=== PATIENT | male | born 1985 | race Two or more races ===

== ENCOUNTER 2017-01-08 02:57 | Emergency (ER) | payer OTHER ==
[~2017-01-08] VITALS: Ht 167.6 cm; Wt 76.2 kg
[~2017-01-08 02:57] MED LIST: BENA20TA2 PO
[2017-01-08] MEDS ORDERED: BUPROPN HCL (03:14)
[2017-01-08] MEDS ORDERED: APAP (03:14)
[2017-01-08] MEDS ORDERED: HYDROCO (03:14)
[2017-01-08] MEDS ORDERED: ALPRAZOLAM 2 MG (03:14)
[2017-01-08] MEDS ORDERED: TRUVADA (03:14)
[2017-01-08] MEDS ORDERED: TEGRETOL (03:18)
[2017-01-08] MEDS ORDERED: ATENOLOL (03:18)
[2017-01-08] MEDS ORDERED: CLONIDINE (03:19)
--- NOTE | 2017-01-08 03:42 | NUR ---
Pt ambulated to room with steady gait. Pt c/o general body pain, nausea and fever. Pt sts "my lupus is flaring up." Pt seen by Dr. David. IV established, labs drawn and sent. Pt medicated for discomfort and nausea, will monitor for effects of medications. Fluid bolus infusing freely to gravity. Pt resting in position of comfort for self. Family at bedside.
[2017-01-08 04:12] LABS: BILIRUBIN,DIRECT 0.1 mg/dL (0.0-0.2); BILIRUBIN,TOTAL 0.7 mg/dL (0.2-1.0); POTASSIUM 3.6 mmol/L (3.5-5.1); TOTAL PROTEIN, SERUM 7.5 g/dL (6.4-8.2)
--- NOTE | 2017-01-08 04:14 | NUR ---
Fluid bolus completed. Pt sts his pain improved with medications. Pt conts to c/o severe nausea. notified and pt medicated, will monitor for effects of medication. Pt repositioned for comfort, family at bedside.
[2017-01-08 04:20] LABS: EOSINOPHILS % (AUTO) 0.9 % (0.0-7.0); HEMATOCRIT 47.3 % (40-50); HEMOGLOBIN 16.2 G/DL (14.0-18.0); LYMPHOCYTES % (AUTO) 13.7 % (20.5-51.5); MEAN CORPUSCULAR HEMOGLOBIN 32.2 UUG (27.0-31.0); MEAN CORPUSCULAR HGB CONC 34 g/dL (32.0-37.0); MONOCYTES % (AUTO) 8.2 % (0.0-11.0); NEUTROPHILS % (AUTO) 77.1 % (38.5-71.5); PLATELET COUNT (AUTO) 228 K/UL (150-450); RED BLOOD CELL COUNT(AUTO) 5.03 MIL/UL (4.7-6.1); WHITE BLOOD COUNT (AUTO) 8.8 K/UL (4.0-11.2)
[2017-01-08 04:21] LABS: BASOPHILS % (AUTO) 0.1 % (0.0-2.0); EOSINOPHILS # (AUTO) 0.1 K/uL (0.0-0.7); LYMPHOCYTES # (AUTO) 1.2 K/UL (0.8-4.8); MONOCYTES # (AUTO) 0.7 K/UL (0.1-1.30); NEUTROPHILS # (AUTO) 6.8 K/UL (1.8-8.9)
[2017-01-08 04:37] LABS: *BILIRUBIN,URIN NEGATIVE (NEGATIVE); *BLOOD, URINE NEGATIVE (NEGATIVE); *CLARITY,URINE CLEAR (CLEAR); *COLOR,URINE YELLOW (YELLOW); *KETONES,URINE NEGATIVE (NEGATIVE); *PROTEIN,URINE NEGATIVE (NEGATIVE); *UROBILINOGEN,URINE 0.2 E.U./dl (NORMAL); LEUKOCYTE ESTERASE ,URINE NEGATIVE (NEGATIVE); NITRITE, URINE NEGATIVE (NEGATIVE); PH,URINE 6.5 (5.0-8.0); UGLUCOSE NEGATIVE (NEGATIVE)
[2017-01-08 04:45] LABS: BACTERIA,URINE NONE SEEN /HPF (NONE SEEN); MUCUS,URINE FEW /LPF (0-FEW); RBC,URINE NONE SEEN /HPF (0-3); SQUAMOUS EPITHELIAL CELL,UR FEW /HPF (NONE SEEN); WBC,URINE 0-3 /HPF (0-3)
--- NOTE | 2017-01-08 04:50 | NUR ---
Pt sts his nausea has improved. No complaints at this time. Pt awaiting re-evaluation and disposition.
--- NOTE | 2017-01-08 05:40 | NUR ---
Pt sts he is feeling better. Pt stable for discharge per Dr. David. IV dc'd, catheter intact. Drsg applied. No problems noted to site. Pt and family given ACI. Both verbalized understanding of dc instructions. Pt ambulated out of er with steady gait and ride home
[2017-01-08 05:42] VITALS: BP 148/97
== END 2017-01-08 05:42 | disposition home or self-care (01) ==
LOC: ER 02:57
DX: R50.9 Fever, unspecified (principal); M32.9 Systemic lupus erythematosus, unspecified; R11.0 Nausea; M79.1 Myalgia; I10 Essential (primary) hypertension
CPT/HCPCS: 36415; 83690; 85025; 85651; 86140; 93005; A4663; J1170; J2405; J2765; J2930; J7030

== ENCOUNTER 2017-02-01 01:19 | Emergency (ER) | payer OTHER ==
[~2017-02-01] VITALS: Ht 170.2 cm; Wt 74.8 kg
[~2017-02-01 01:19] MED LIST changes: +ALPRAZOLAM 2 MG PO; +APAP PO; +ATENOLOL PO; +BUPROPN HCL PO; +CLONIDINE PO; +HYDROCO PO; +TEGRETOL; +TRUVADA PO
[2017-02-01] MEDS ORDERED: ONDANSETRON 4 MG/2 ML VIAL IV ONE ×2 (02:00→03:30)
[2017-02-01] MEDS ORDERED: MORPHINE SULFATE 2 MG/1 ML DISP.SYRIN IV ONE (02:00)
[2017-02-01] MEDS ORDERED: PANTOPRAZOLE SODIUM 40 MG VIAL IV ONE (02:00)
[2017-02-01] MEDS ORDERED: IV NORMAL SALINE 1000 ML BAG IV ONE (02:00)
[2017-02-01 02:15] LABS: BASOPHILS % (AUTO) 0.3 % (0.0-2.0); EOSINOPHILS % (AUTO) 0.4 % (0.0-7.0); HEMATOCRIT 47.3 % (40-50); HEMOGLOBIN 16.5 G/DL (14.0-18.0); LYMPHOCYTES # (AUTO) 1.1 K/UL (0.8-4.8); LYMPHOCYTES % (AUTO) 9.3 % (20.5-51.5); MEAN CORPUSCULAR HEMOGLOBIN 32.7 UUG (27.0-31.0); MEAN CORPUSCULAR HGB CONC 35 g/dL (32.0-37.0); MEAN CORPUSCULAR VOLUME 93.7 FL (82.0-92.0); MONOCYTES # (AUTO) 0.6 K/UL (0.1-1.30); MONOCYTES % (AUTO) 5.5 % (0.0-11.0); NEUTROPHILS # (AUTO) 9.9 K/UL (1.8-8.9); NEUTROPHILS % (AUTO) 84.5 % (38.5-71.5); PLATELET COUNT (AUTO) 241 K/UL (150-450); RED BLOOD CELL COUNT(AUTO) 5.05 MIL/UL (4.7-6.1); WHITE BLOOD COUNT (AUTO) 11.6 K/UL (4.0-11.2)
[2017-02-01 02:29] LABS: BILIRUBIN,DIRECT 0.1 mg/dL (0.0-0.2); BILIRUBIN,TOTAL 0.5 mg/dL (0.2-1.0); CREATININE 1.1 mg/dL (0.6-1.3); POTASSIUM 3.4 mmol/L (3.5-5.1); TOTAL PROTEIN, SERUM 7.8 g/dL (6.4-8.2)
[2017-02-01] MEDS ORDERED: MORPHINE SULFATE 2 MG/1 ML DISP.SYRIN ONE (02:51)
[2017-02-01] MEDS ORDERED: ONDANSETRON 4 MG/2 ML VIAL ONE ×2 (02:51→03:31)
[2017-02-01] MEDS ORDERED: PANTOPRAZOLE SODIUM 40 MG VIAL ONE (02:51)
[2017-02-01] MEDS ORDERED: HYDROMORPHONE 1 MG/1 ML DISP.SYRIN IV ONE (03:30)
[2017-02-01] MEDS ORDERED: HYDROMORPHONE 1 MG/1 ML DISP.SYRIN ONE (03:31)
[2017-02-01] MEDS ORDERED: diphenhydrAMINE 50 MG/1 ML VIAL ONE (03:37)
[2017-02-01] MEDS ORDERED: METOCLOPRAMIDE HCL 10 MG/2 ML VIAL ONE (03:37)
[2017-02-01] MEDS ORDERED: diphenhydrAMINE 50 MG/1 ML VIAL IV ONE (03:45)
[2017-02-01] MEDS ORDERED: METOCLOPRAMIDE HCL 10 MG/2 ML VIAL IV ONE (03:45)
[2017-02-01 04:08] LABS: *BILIRUBIN,URIN NEGATIVE (NEGATIVE); *BLOOD, URINE NEGATIVE (NEGATIVE); *CLARITY,URINE CLEAR (CLEAR); *COLOR,URINE YELLOW (YELLOW); *KETONES,URINE 1+ (NEGATIVE); *PROTEIN,URINE NEGATIVE (NEGATIVE); *UROBILINOGEN,URINE 0.2 E.U./dl (NORMAL); LEUKOCYTE ESTERASE ,URINE NEGATIVE (NEGATIVE); NITRITE, URINE NEGATIVE (NEGATIVE); UGLUCOSE NEGATIVE (NEGATIVE)
[2017-02-01 04:10] LABS: BACTERIA,URINE NONE SEEN /HPF (NONE SEEN); RBC,URINE 0-3 /HPF (0-3); SQUAMOUS EPITHELIAL CELL,UR FEW /HPF (NONE SEEN); WBC,URINE 0-3 /HPF (0-3)
--- NOTE | 2017-02-01 04:47 | NUR ---
Patient discharged to home in stable conditon. Written and verbal after care instructions given. Patient verbalizes understanding of instructions.
== END 2017-02-01 04:48 | disposition home or self-care (01) ==
LOC: ER 01:22
DX: K92.0 Hematemesis (principal); K29.70 Gastritis, unspecified, without bleeding; I10 Essential (primary) hypertension; Z88.0 Allergy status to penicillin; Z88.6 Allergy status to analgesic agent; Z90.49 Acquired absence of other specified parts of digestive tract
CPT/HCPCS: 36415; 80048; 80076; 81001; 83690; 85025; 85730; 86850; 86900; 86901; 96361; 96374; 96375; 99284; A4663; C9113; J1170; J1200; J2270; J2405; J2765; J7030

== ENCOUNTER 2017-03-03 12:33 | Emergency (ER) | payer OTHER ==
[~2017-03-03] VITALS: Ht 170.2 cm; Wt 77.1 kg
[2017-03-03] MEDS ORDERED: ONDA4TAB8 PO (12:52)
[2017-03-03] MEDS ORDERED: CLONIDINE TAB 0.1MG (12:52)
[2017-03-03] MEDS ORDERED: ONDANSETRON 4 MG/2 ML VIAL IV ONE (13:45)
[2017-03-03] MEDS ORDERED: IV NORMAL SALINE 1000 ML BAG IV ONE (13:45)
[2017-03-03 14:04] LABS: BASOPHILS % (AUTO) 0.4 % (0.0-2.0); EOSINOPHILS # (AUTO) 0.3 K/uL (0.0-0.7); EOSINOPHILS % (AUTO) 5.1 % (0.0-7.0); HEMATOCRIT 47.4 % (40-50); HEMOGLOBIN 16.3 G/DL (14.0-18.0); LYMPHOCYTES # (AUTO) 1.8 K/UL (0.8-4.8); LYMPHOCYTES % (AUTO) 29.5 % (20.5-51.5); MEAN CORPUSCULAR HEMOGLOBIN 31.8 UUG (27.0-31.0); MEAN CORPUSCULAR HGB CONC 34 g/dL (32.0-37.0); MEAN CORPUSCULAR VOLUME 92.7 FL (82.0-92.0); MONOCYTES # (AUTO) 0.4 K/UL (0.1-1.30); MONOCYTES % (AUTO) 6.6 % (0.0-11.0); NEUTROPHILS # (AUTO) 3.6 K/UL (1.8-8.9); NEUTROPHILS % (AUTO) 58.4 % (38.5-71.5); PLATELET COUNT (AUTO) 275 K/UL (150-450); RED BLOOD CELL COUNT(AUTO) 5.11 MIL/UL (4.7-6.1); WHITE BLOOD COUNT (AUTO) 6.1 K/UL (4.0-11.2)
[2017-03-03] MEDS ORDERED: ONDANSETRON 4 MG/2 ML VIAL ONE (14:05)
[2017-03-03 14:07] LABS: CREATININE 0.8 mg/dL (0.6-1.3); POTASSIUM 4.2 mmol/L (3.5-5.1)
[2017-03-03 14:12] LABS: BILIRUBIN,DIRECT 0.1 mg/dL (0.0-0.2); BILIRUBIN,TOTAL 0.4 mg/dL (0.2-1.0); TOTAL PROTEIN, SERUM 7.5 g/dL (6.4-8.2)
[2017-03-03] MEDS ORDERED: diphenhydrAMINE 50 MG/1 ML VIAL IV ONE (15:15)
[2017-03-03] MEDS ORDERED: METOCLOPRAMIDE HCL 10 MG/2 ML VIAL IV ONE (15:15)
--- NOTE | 2017-03-03 15:43 | NUR ---
Patient discharged to home in stable conditon. Written and verbal after care instructions given. Patient verbalizes understanding of instructions. Stressed follow up with pmd/GI, pt was given referrals by Dr. Akers.
[2017-03-03] MEDS ORDERED: METOCLOPRAMIDE HCL 10 MG/2 ML VIAL ONE (15:47)
[2017-03-03] MEDS ORDERED: diphenhydrAMINE 50 MG/1 ML VIAL ONE (15:47)
== END 2017-03-03 15:44 | disposition home or self-care (01) ==
LOC: ER 12:38
DX: R19.7 Diarrhea, unspecified (principal); R11.2 Nausea with vomiting, unspecified; R10.9 Unspecified abdominal pain; R51 Headache; F12.10 Cannabis abuse, uncomplicated; Z88.0 Allergy status to penicillin; Z90.49 Acquired absence of other specified parts of digestive tract; I10 Essential (primary) hypertension
CPT/HCPCS: 36415; 70450; 74176; 80048; 80076; 84484; 85025; 96361; 96374; 96375; 99285; A4663; J1200; J2405; J2765; J7030; 70030-TC

== ENCOUNTER 2017-05-26 19:02 | Emergency (ER) | payer OTHER ==
[~2017-05-26] VITALS: Ht 170.2 cm; Wt 74.8 kg
[~2017-05-26 19:02] MED LIST changes: +CLONIDINE TAB 0.1MG; +ONDA4TAB8 PO; -TEGRETOL
[2017-05-26] MEDS ORDERED: LABETALOL HCL 100 MG/20 ML VIAL ONE (19:36)
[2017-05-26] MEDS ORDERED: LORAZEPAM 2 MG/1 ML VIAL IV ONE (19:45)
[2017-05-26] MEDS ORDERED: ACETAMINOPHEN 325 MG TABLET PO ONE (19:45)
[2017-05-26] MEDS ORDERED: LABETALOL HCL 100 MG/20 ML VIAL IV ONE (19:45)
[2017-05-26] MEDS ORDERED: ACETAMINOPHEN ES 500 MG TABLET PO ONE (19:45)
[2017-05-26] MEDS ORDERED: ACETAMINOPHEN ES 500 MG TABLET ONE (19:52)
[2017-05-26] MEDS ORDERED: LORAZEPAM 2 MG/1 ML VIAL ONE (19:53)
[2017-05-26 20:02] LABS: BASOPHILS % (AUTO) 0.4 % (0.0-2.0); EOSINOPHILS % (AUTO) 0.4 % (0.0-7.0); HEMOGLOBIN 15.9 g/dL (12.5-16.3); LYMPHOCYTES # (AUTO) 2.4 K/uL (20.0-40.0); LYMPHOCYTES % (AUTO) 41.2 % (20.5-51.5); MEAN CORPUSCULAR HEMOGLOBIN 33.3 uug (23.8-33.4); MEAN CORPUSCULAR HGB CONC 36 g/dL (32.5-36.3); MEAN CORPUSCULAR VOLUME 92.3 fL (73.0-96.2); MONOCYTES # (AUTO) 0.6 K/uL (2.0-10.0); MONOCYTES % (AUTO) 10.2 % (0.0-11.0); NEUTROPHILS # (AUTO) 2.8 K/uL (1.8-8.9); NEUTROPHILS % (AUTO) 47.8 % (38.5-71.5); PLATELET COUNT (AUTO) 275 K/uL (152-348); RED BLOOD CELL COUNT(AUTO) 4.76 MIL/uL (4.06-5.63); WHITE BLOOD COUNT (AUTO) 5.9 K/uL (3.6-10.2)
[2017-05-26 20:10] LABS: HEMATOCRIT 44.3 % (36.7-47.1)
[2017-05-26 20:17] LABS: BILIRUBIN,TOTAL 0.5 mg/dL (0.2-1.0); CREATININE 1.1 mg/dL (0.6-1.3); POTASSIUM 3.3 mmol/L (3.5-5.1); TOTAL PROTEIN, SERUM 7.6 g/dL (6.4-8.2)
[2017-05-26] MEDS ORDERED: CLONIDINE HCL 0.2 MG TABLET ONE (21:14)
[2017-05-26] MEDS ORDERED: POTASSIUM CHLORIDE 20 MEQ TAB.PRT.SR ONE (21:14)
[2017-05-26] MEDS ORDERED: CLONIDINE HCL 0.2 MG TABLET PO ONE (21:15)
[2017-05-26] MEDS ORDERED: POTASSIUM CHLORIDE 20 MEQ TAB.PRT.SR PO ONE (21:15)
[2017-05-26 21:23] VITALS: BP 150/81
--- NOTE | 2017-05-26 21:23 | NUR ---
Patient discharged to home in stable conditon. Written and verbal after care instructions given. Patient verbalizes understanding of instructions.
== END 2017-05-26 21:27 | disposition home or self-care (01) ==
LOC: ER 19:03
DX: I10 Essential (primary) hypertension (principal); R94.31 Abnormal electrocardiogram [ECG] [EKG]; Z88.0 Allergy status to penicillin; Z88.6 Allergy status to analgesic agent; Z90.49 Acquired absence of other specified parts of digestive tract
CPT/HCPCS: 70030-TC; 71045; 85025; 93005; A4663; A9150; J2060; J3490

== ENCOUNTER 2017-09-04 08:26 | Emergency (ER) | payer OTHER ==
[~2017-09-04] VITALS: Ht 165.1 cm; Wt 73.5 kg
--- NOTE | 2017-09-04 08:46 | NUR ---
Dr Fernandez at the bedside for MSE.
[2017-09-04] MEDS ORDERED: LORAZEPAM 1 MG TABLET ONE (08:56)
[2017-09-04] MEDS ORDERED: LORAZEPAM 0.5 MG TABLET PO ONE (09:00)
[2017-09-04 09:14] LABS: POTASSIUM 3.5 mmol/L (3.5-5.1)
[2017-09-04 09:15] LABS: BASOPHILS % (AUTO) 0.6 % (0.0-2.0); EOSINOPHILS # (AUTO) 0.1 K/uL (0.0-0.7); HEMATOCRIT 45.4 % (36.7-47.1); HEMOGLOBIN 16.1 g/dL (12.5-16.3); LYMPHOCYTES # (AUTO) 1.5 K/uL (20.0-40.0); LYMPHOCYTES % (AUTO) 36.3 % (20.5-51.5); MEAN CORPUSCULAR HEMOGLOBIN 33.4 uug (23.8-33.4); MEAN CORPUSCULAR HGB CONC 36 g/dL (32.5-36.3); MEAN CORPUSCULAR VOLUME 94.1 fL (73.0-96.2); MONOCYTES # (AUTO) 0.4 K/uL (2.0-10.0); MONOCYTES % (AUTO) 11.2 % (0.0-11.0); NEUTROPHILS % (AUTO) 49.9 % (38.5-71.5); PLATELET COUNT (AUTO) 215 K/uL (152-348); RED BLOOD CELL COUNT(AUTO) 4.82 MIL/uL (4.06-5.63)
[2017-09-04 09:21] LABS: ETHANOL < 3 MG/DL (0-0)
--- NOTE | 2017-09-04 09:44 | NUR ---
Pt states feeling better and trembling has decreased.
--- NOTE | 2017-09-04 09:52 | NUR ---
Patient discharged to home in stable conditon. Written and verbal after care instructions given. Patient verbalizes understanding of instructions. Pt left ER w/ steady gait accompained by partner.
[2017-09-04 09:54] VITALS: BP 136/80
== END 2017-09-04 09:54 | disposition home or self-care (01) ==
LOC: ER 08:29
DX: F41.9 Anxiety disorder, unspecified (principal); I10 Essential (primary) hypertension; F12.10 Cannabis abuse, uncomplicated; Z90.49 Acquired absence of other specified parts of digestive tract; Z90.89 Acquired absence of other organs; Z88.0 Allergy status to penicillin; Z88.8 Allergy status to other drugs, medicaments and biological substances; Z79.899 Other long term (current) drug therapy
CPT/HCPCS: 36415; 85025; A4663; G0480

== ENCOUNTER 2018-07-08 14:42 | Emergency (ER) | payer OTHER ==
[~2018-07-08 14:42] MED LIST changes: -BENA20TA2 PO; +BENA20TA9 PO
--- NOTE | 2018-07-08 15:19 | NUR ---
CALLED FOR TRIAGE - NO IN WAITING ROOM X 2.
== END 2018-07-08 15:19 | disposition left against medical advice (07) ==
LOC: ER 14:45
DX: Z53.21 Procedure and treatment not carried out due to patient leaving prior to being seen by health care provider (principal)